=== PATIENT | female | born 1950 | race Caucasian/White ===

== ENCOUNTER 2025-06-10 16:19 | Emergency (ER) | payer MEDICARE ==
[~2025-06-10] VITALS: Ht 157.5 cm; Wt 86.2 kg
[2025-06-10 19:06] LABS: LEUKOCYTE ESTERASE ,URINE NEGATIVE (NEGATIVE); PROTEIN,URINE DIPSTICK NEGATIVE (NEGATIVE); URINE UROBILINOGEN 0.2 mg/dL (0.2 - 1)
[2025-06-10 19:07] LABS: BASOPHILS % 0.4 % (0.0-1.0); EOSINOPHILS % 1.3 % (0.0-6.0); LYMPHOCYTES % 22.7 % (18.0-39.1); MONOCYTES % 7.6 % (4.4-11.3); NEUTROPHILS % 67.8 % (38.7-80.0); RED CELL DISTRIBUTION WIDTH 14.5 % (11.7-14.4)
[2025-06-10 19:10] LABS: EPITHELIAL CELLS,URINE FEW /LPF; WBC,URINE (MAN) 0-5 /HPF (0-5)
[2025-06-10 19:19] LABS: INR 1.1
[2025-06-10 19:30] LABS: EST GLOMERULAR FILTRATION RATE 92 ML/MIN (>=60)
[2025-06-10] MEDS: SODIUM CHLORIDE 0.9% 1000ML 1,000 ML IV STA (19:30)
[2025-06-10] MEDS: ONDANSETRON HCL INJ 2MG/ML 2ML 2 MG/ML VIAL IV STA (19:31)
[2025-06-10] MEDS ORDERED: IOPAMIDOL 370 MG/ML 100 ML INFUS..BTL INJ ONE (19:32)
[2025-06-10] MEDS: Morphine 4mg INJECTION 4 MG/ML INJ IV STA (19:32)
[2025-06-10 21:00] VITALS: TEMP 97.7
[2025-06-10] MEDS: METRONIDAZOLE 500MG/NS 100ML 100 ML IV ONE (22:42)
[2025-06-10 22:51] VITALS: PULSE 92; RESP 17; O2SAT 99
== END 2025-06-10 22:16 | disposition other institution (70) ==
LOC: ER 17:05
DX: R10.32 Left lower quadrant pain (principal); K57.20 Diverticulitis of large intestine with perforation and abscess without bleeding; R11.0 Nausea; J45.909 Unspecified asthma, uncomplicated; E03.9 Hypothyroidism, unspecified
CPT/HCPCS: 36415; 74177; 80053; 81001; 82550; 83690; 83735; 84484; 85025; 85610; 85730; 87086; 99284; J2270; J2405; J2470; J2543; J7030; Q9967